=== PATIENT | male | born 1945 | race Caucasian/White ===

== ENCOUNTER → 2016-08-22 | Outpatient (CLI) | payer OTHER ==
[~2016-08-22] MED LIST: IOPAMIDOL (ISOVUE 370) 100 ML BTL IV ONE
== END ==
LOC: CIMAGING 10:11
PROVIDERS: ATTEND Internal Medicine
DX: R10.9 Unspecified abdominal pain (principal); R10.12 Left upper quadrant pain; K59.00 Constipation, unspecified; M51.36 Other intervertebral disc degeneration, lumbar region; Z85.528 Personal history of other malignant neoplasm of kidney; Z90.5 Acquired absence of kidney
CPT/HCPCS: 74160-PO; Q9967

== ENCOUNTER 2016-12-23 19:59 | Inpatient (IN) | payer OTHER ==
[2016-12-23] MEDS ORDERED: NS 500 ML IV ONE (20:18)
--- NOTE | 2016-12-23 20:18 | CPEKG ---
Heart Rate: 54 RR Interval: 1111 P-R Interval: 180 QRSD Interval: 92 QT Interval: 432 QTC Interval: 410 P [place]: 30 QRS [place]: -65 T Wave [place]: 51 EKG Severity - ABNORMAL ECG - EKG Impression: SINUS RHYTHM EKG Impression: LEFT ANTERIOR FASCICULAR BLOCK Electronically Signed By: Adriano Nesbitt 23-Dec-2016 22:08:12
[2016-12-23 20:42] LABS: INR 0.99 (0.83-1.16)
[2016-12-23 20:43] LABS: APTT 23.8 SEC (23.0-38.0)
[2016-12-23 20:51] LABS: ANION GAP 10 mEq/L (8-16); CALCIUM 9.9 mg/dL (8.5-10.4); CARBON DIOXIDE 25 mEq/l (22-31); CHLORIDE 101 mEq/L (97-110); GLOMERULAR FILTRATION RATE > 60; GLUCOSE 109 mg/dL (70-100); POTASSIUM 3.9 mEq/L (3.5-5.2); SODIUM 136 mEq/L (134-144)
--- NOTE | 2016-12-23 20:51 | EDPHY ---
H & P Time Seen by Provider: 12/23/16 20:10 HPI/ROS: HPI Lightheaded, chest pain. 71-year-old male by private vehicle with his . This patient reports that over the last week he has had intermittent episodes of lightheadedness and near syncope. He reports he is associated with chest pain which she describes as a mid sternal ache. He also reports these episodes are associated with diaphoresis. He denies any radiation of the chest pain. He denies any headache. No associated shortness of breath. He has had no loss of sensation or weakness in his extremities. He denies any associated palpitations. He has a history of coronary artery disease. Please see below. ROS: Constitutional: No fever, no chills. As above. Eyes: No discharge. No changes in vision. ENT: No sore throat. No nasal congestion or rhinorrhea. Respiratory: No cough. No shortness of breath. Cardiac: As above, no palpitations. Gastrointestinal: No abdominal pain, no vomiting, no diarrhea. Genitourinary: No hematuria. No dysuria or increased frequency with urination. Musculoskeletal: No back pain. No neck pain. No myalgias or arthralgias. Skin: No rashes. Neurological: No headache. No focal weakness or altered sensation. 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 He had a coronary angiogram by Dr. Cagle about 1 year ago. This showed some clogging of 1 of the stents which was reopened. Social history: Nonsmoker. No alcohol. Here with his . Physical Exam: General Appearance: Alert, no distress. This patient is responding to questions appropriately and in full sentences. This patient appears well- hydrated and well-nourished. Eyes: Pupils equal and round no pallor or injection. No lid edema, erythema or injection. Respiratory: There are no retractions, lungs are clear to auscultation with good air movement bilaterally. Cardiovascular: Regular rate and rhythm. No murmur appreciated. Gastrointestinal: Abdomen is soft and nontender, no masses, bowel sounds normal. No focal tenderness at McBurney's point. No Garcia sign. Neurological: Motor sensory function is grossly intact. Cranial nerves are normal. Gait is normal. Skin: Warm and dry, no rashes. Musculoskeletal: Neck is supple and nontender. Extremities are symmetrical. All joints range without pain or impingement. Psychiatric: No agitation. No depression. Database: EKG: EKG time is 8:17 p.m.; EKG shows a narrow complex normal sinus rhythm with a ventricular rate of 54. Left anterior fascicular block noted. The [place], QRS, QT intervals are within normal limits. There are no ST-T wave changes indicative of ischemic or injury pattern. No evidence of right heart strain. No evidence of WPW, Brugada syndrome, hypertrophic cardiomyopathy. Interpreted by me. Imaging: Chest x-ray AP portable; the cardiac mediastinal silhouette is unremarkable. No evidence of infiltrate or pneumothorax. No acute cardiopulmonary disease process noted. Interpreted by me. Procedures: Emergency department course: IV placed. He was placed on a shelter monitor. He was started on IV normal saline with 500 cc to be given over the next hour. He was given 324 mg of chewed aspirin. EKG performed. He states that this time that he feels mildly lightheaded but is otherwise asymptomatic. His vital signs were reviewed. 9:10 p.m., spoke with hospitalist regarding this patient's emergency department workup. Case discussed in detail. Dr. Roxana Esquivel accepts the patient for admission to telemetry. Echocardiogram and carotid artery Dopplers will be obtained by the hospitalist service. 9:30 p.m., results of diagnostic workup discussed with the patient and his . Plan for admission reviewed. All of their questions were answered. The patient was admitted to the hospitalist service, telemetry in stable condition. Differential Diagnosis: The differential diagnosis on this patient includes but is not limited to acute coronary syndrome, arrhythmia. CVA, TIA, pulmonary embolism, subarachnoid hemorrhage unlikely. This represents a partial list of diagnoses considered. These considerations are based on history, physical exam, past history, reassessment and diagnostic testing. Smoking Status: Never smoked Constitutional: Initial Vital Signs Temperature (C) 36.5 C 12/23/16 20:05 Heart Rate 56 L 12/23/16 20:05 Respiratory Rate 14 12/23/16 20:05 Blood Pressure 122/76 H 12/23/16 20:05 O2 Sat (%) 94 12/23/16 20:05 O2 Delivery Mode Room Air Allergies/Adverse Reactions: morphine Allergy (Severe, Verified 10/25/16 20:01) symptomatic bradycardia ciprofloxacin [From Cipro] Allergy (Verified 02/26/16 20:01) Other-Enter Comments ciprofloxacin HCl [From Cipro] Allergy (Verified 02/26/16 20:01) rofecoxib [From Vioxx] Allergy (Verified 02/26/16 20:01) Home Medications: Medication Instructions Recorded Multivitamins [Multivitamin (*)] 1 each PO DAILY 05/05/12 Nitroglycerin [Nitrostat 0.4 mg 0.4 mg SL PRN PRN 05/05/12 (*)] Pravastatin Sodium 5 mg PO HS 05/05/12 amLODIPine BESYLATE [Norvasc 5 mg 5 mg PO DAILY 05/05/12 (*)] Herbals/Supplements -Info Only 1 ea PO DAILY 10/24/13 Tamsulosin HCl [Flomax 0.4 MG (*)] 0.4 mg PO HS 08/31/14 C/E/Zn/Cu/OM3/DHA/EPA/LUT/ZEAX 2 each PO DAILY 02/24/16 [Preservision Areds 2 Softgel] HYDROmorphone HCL [Dilaudid 2 mg 2 mg PO Q4 PRN 02/24/16 (*)] LORazepam [Ativan (*)] 1 mg PO DAILY PRN 02/24/16 Levothyroxine [Synthroid 25 mcg 25 mcg PO DAILY06 02/24/16 (*)] Nebivolol HCl [Bystolic 5 mg (*)] 2.5 mg PO DAILY 02/24/16 Niacin [Niacin ER] 1,500 mg PO HS 02/24/16 Zolpidem Tartrate [Ambien 5MG (*)] 5 mg PO HS PRN 02/24/16 Acetaminophen [Tylenol 325mg (*)] 650 mg PO Q6HRS PRN #0 tab 03/01/16 Polyethylene Glycol 3350 [Miralax 17 gm PO DAILY #0 pkt 03/01/16 17 gm (*)] Medical Decision Making - Diagnostics Imaging Results: Imaging Impressions Chest X-Ray 12/23/16 20:19 Impression: Chest negative for acute abnormality. - Data Points Laboratory Results: Laboratory Results 12/23/16 20:15 12/23/16 12/23/16 12/23/16 Unknown 20:15 20:15 WBC Pending RBC Pending Hgb Pending Hct Pending MCV Pending MCH Pending MCHC Pending RDW Pending Plt Count Pending MPV Pending Neut % (Auto) Pending Lymph % (Auto) Pending [place] % (Auto) Pending Eos % (Auto) Pending Baso % (Auto) Pending Nucleat RBC Rel Count Pending Absolute Neuts (auto) Pending Absolute Lymphs (auto) Pending Absolute Monos (auto) Pending Absolute Eos (auto) Pending Absolute Basos (auto) Pending Absolute Nucleated RBC Pending Immature Gran % Pending Immature Gran # Pending PT 13.0 SEC SEC (12.0-15.0) INR 0.99 (0.83-1.16) APTT 23.8 SEC SEC (23.0-38.0) Sodium 136 mEq/L mEq/L (134-144) Potassium 3.9 mEq/L mEq/L (3.5-5.2) Chloride 101 mEq/L mEq/L (97-110) Carbon Dioxide 25 mEq/l mEq/l (22-31) Anion Gap 10 mEq/L mEq/L (8-16) BUN 19 mg/dL mg/dL (7-23) Creatinine 1.0 mg/dL mg/dL (0.7-1.3) Estimated GFR > 60 Glucose 109 mg/dL H mg/dL (70-100) Calcium 9.9 mg/dL mg/dL (8.5-10.4) Creatine Kinase 70 IU/L IU/L (0-224) CK-MB (CK-2) Fraction 0.84 ng/mL ng/mL (0.00-3.19) Troponin I < 0.012 ng/mL ng/mL (0.000-0.034) NT-Pro-B Natriuret Pep 84 pg/mL pg/mL (0-125) Medications Given: Discontinued Medications Aspirin (Aspirin) 324 mg PO EDNOW ONE Stop: 12/23/16 20:53 Last Admin: 12/23/16 20:58 Dose: 81 mg Sodium Chloride (Ns) 500 mls @ 1,000 mls/hr IV EDNOW ONE PRN Reason: Protocol Stop: 12/23/16 20:47 Last Admin: 12/23/16 20:39 Dose: 500 mls Departure - Departure Disposition: [facility] Acute Clinical Impression: Chest pain, Lightheaded, Near syncope, History of coronary artery disease Referrals: Nery Hurd MD [Primary Care Provider] - As per Instructions
[2016-12-23] MEDS ORDERED: ASPIRIN 81 MG CHEWABLE TAB PO ONE (20:52)
[2016-12-23 21:03] LABS: CREATINE KINASE-MB FRACTION 0.84 ng/mL (0.00-3.19); TROPONIN I < 0.012 ng/mL (0.000-0.034)
[2016-12-23 21:12] LABS: % IMMATURE GRANULYOCYTES 0.3 % (0.0-1.1); ABSOLUTE IMMATURE GRANULOCYTES 0.02 10^3/uL (0.00-0.10); ADD DIFF? NO; ADD MORPH? NO; ADD SCAN? NO; ATYPICAL LYMPHOCYTE FLAG 10 (0-99); FRAGMENT RBC FLAG 0 (0-99); HEMATOCRIT 41.9 % (40.0-51.0); HEMOGLOBIN 14.9 g/dL (13.7-17.5); LEFT SHIFT FLG 0 (0-99); LIPEMIA HEMOLYSIS FLAG 90 (0-99); MEAN CELL HEMOGLOBIN 34.6 pg (27.9-34.1); MEAN CELL HEMOGLOBIN CONCENTR. 35.6 g/dL (32.4-36.7); MEAN CELL VOLUME 97.2 fL (81.5-99.8); MEAN PLATELET VOLUME 9.7 fL (8.7-11.7); PLATELET CLUMPS FLAG 0 (0-99); PLATELET COUNT 168 10^3/uL (150-400); RED BLOOD CELL COUNT 4.31 10^6/uL (4.40-6.38); RED CELL DISTRIBUTION WIDTH 12.6 % (11.5-15.2)
[2016-12-23] MEDS ORDERED: NON-FORMULARY NEW DRUG (Zolpidem Tartrate [Ambien 10 Mg] 5 MG) PO PRN (23:34)
[2016-12-23] MEDS ORDERED: POLYETHYLENE GLYCOL 3350 17 GM PKT PO PRN (23:34)
[2016-12-23] MEDS ORDERED: LORazepam 1 MG TAB PO PRN (23:34)
[2016-12-23] MEDS ORDERED: NITROGLYCERIN TL PRN (23:39)
[2016-12-23] MEDS ORDERED: NITROGLYCERIN SL SCH (23:45)
[2016-12-23] MEDS ORDERED: ONDANSETRON 4 MG/2 ML VIAL IVP PRN (23:47)
[2016-12-23] MEDS ORDERED: ONDANSETRON DISINTEGRATING 4 MG TAB PO PRN (23:47)
--- NOTE | 2016-12-24 00:25 | GHP ---
[f rep st] HISTORY AND PHYSICAL DATE OF ADMISSION: 12/23/2016 CHIEF COMPLAINT: Lightheadedness. HISTORY OF PRESENT ILLNESS: A 71-year-old man with a history of cardiac disease presents with about 1 week's worth of lightheadedness. This started last Thursday described as significant dizziness. He has not fallen or fainted. It waxes and wanes. He is not currently feeling lightheaded at this time. This is associated with some substernal chest pain, which is different than his previous angin a. This also waxes and wanes. His cardiac history includes stents to his diagonal placed [address] Cagle. He had a cat heterization about 1 year ago in which the stent was angioplastied. No additional stent was placed. He had been on aspirin and was started on Plavix at that point. Plavix was stopped in February aft er he had a splenic rupture post colonoscopy. He has been on aspirin but not Plavix since then. PAST MEDICAL/SURGICAL HISTORY: 1. Coronary artery disease, as above. 2. Renal cell carcinoma, status post tumor resection about 3 years ago. 3. Bilateral ureteral strictures. 4. Hyperlipidemia. 5. Benign prostatic hypertrophy. 6. Appendectomy. MEDICATIONS: Please see medication reconciliation. ALLERGIES: These include morphine, Cipro, Vioxx, Bactrim. FAMILY HISTORY: Both of his parents had coronary artery disease. SOCIAL HISTORY: He drinks alcohol about a glass of wine every other day. Does not smoke. REVIEW OF SYSTEMS: 10-point review of systems is conducted and is negative except per HPI. PHYSICAL EXAMINATION: VITAL SIGNS: Blood pressure 128/74, heart rate 48, respiration rate 18, satt ing 96% on room air, temperature is 36.2. GENERAL: The patient is a pleasant man, who is comfortab le, in no acute distress. HEENT: Shows him to be normocephalic, atraumatic. CARDIOVASCULAR: Show s a regular rate and rhythm. No murmurs, rubs, or gallops. NECK: Shows him to have no carotid bru its bilaterally. PULMONARY: Shows him to be breathing comfortably. Clear to auscultation bilatera lly. ABDOMEN: Soft, nontender, nondistended. SKIN: Shows no rash. : Shows no Kevin. NEUROLO GIC: Shows him to be alert and oriented x3. He is moving all extremities. PSYCHIATRIC: Shows a no rmal mood and affect. LABORATORY DATA: Hemoglobin is 14.9. INR 0.99. Basic metabolic panel is normal. Troponin is negat srini. BNP is 84. DATA: 1. I reviewed his chart. 2. I discussed this with Dr. Esquivel. Will admit to the PCU. 3. I personally reviewed and interpreted his EKG. This shows sinus sachin. He has a left anterior fascicular block. This is unchanged from his previous. 4. Chest x-ray, which I personally reviewed and interpreted, shows nothing acute. IMPRESSION AND PLAN: A 71-year-old male with lightheadedness. 1. Lightheadedness: Concerning for cardiac etiology. Could represent recurrent coronary artery di sease. Also consider arrhythmias, including bradyarrhythmia given his bradycardia. Will monitor on telemetry, make him n.p.o. after midnight for cardiac evaluation, and check an echocardiogram in th e morning. Will also check a duplex ultrasound of his carotids. If there is any question on this, could proceed with CT angiogram, though I will hold this for now as he will potentially get a contra st load with his catheterization. I will ask covering colleague tomorrow to discuss with Cardiology . 2. Hypertension: Continue his Norvas. /[id number]/MODL
[2016-12-24] MEDS: NIACIN ER 500 MG TAB.ER PO SCH ×2 (00:31→21:59)
[2016-12-24] MEDS: PRAVASTATIN SODIUM 10 MG TAB PO SCH ×2 (00:31→21:59)
[2016-12-24] MEDS: TAMSULOSIN HCL 0.4 MG CAP PO SCH ×2 (00:31→22:00)
[2016-12-24] MEDS: ZOLPIDEM TARTRATE 5 MG TAB PO PRN ×2 (00:32→22:03)
[2016-12-24] MEDS: LEVOTHYROXINE 50 MCG TAB PO SCH (07:36)
[2016-12-24] MEDS: PRESERVISION AREDS2 FORMULA EYE VIT 1 EACH PO SCH (09:18)
[2016-12-24] MEDS: ASPIRIN EC 81 MG TAB PO SCH (09:18)
--- NOTE | 2016-12-24 11:19 | ECHO ---
[id number] + + [id number] : : [place] [address] : : [phone] + + Adult Echocardiographic Report + -------+ :Name: COLLEEN PRAKASH DStudy Date: 12/24/2016 07:39 AM : : Hospital Admission Number: [id number] Locati on: 209: :: 1945 Gender: Male Height: 69 in : :Age: 71 yrs Race: WH,White Weight: 136 lb : :Reason For Study: Lightheadedness/chest pain : : BSA: 1.8 meter s2 : + -------+ MMode/2D Measurements \T\ Calculations IVSd: 0.69 cm LVIDd: 4.4 cm FS: 39.5 % LA dimension: LVPWd: 0.86 cm LVIDs: 2.7 cm EDV(Teich): 3.4 cm 89.1 ml ESV(Teich): 26.6 ml EF(Teich): 70.2 % LVLd ap4: 7.5 cm SV(MOD-sp4): EDV(MOD-sp4): 43.0 ml 60.0 ml LVLs ap4: 6.2 cm ESV(MOD-sp4): 17.0 ml EF(MOD-sp4): 71.7 % Normal Measurement Values: + + :LVIDd (3.5-5.7cm) IVSd (0.6-1.1cm) LVPWd (0.6-1.1cm) Aortic Root (2.0-3.7cm)Left Atrium (1.5-4.0cm): :LV Vol(d) (76-115ml) LV Vol(s) (29-48ml) Ejec Fraction (50-65%)PV Lee (0.6- 1.2m/s) TV Lee (0.4-1.0m/s) : :MV E Lee (0.8-1.0m/s)MV A Lee (0.3-1.0m/s)LVOT Lee (0.7-1.2m/s) Asc Ao Lee ( 0.9-1.8m/s) : + + Doppler Measurements \T\ Calculations MV E max lee: 75.0 cm/secAo V2 max: 110.3 cm/sec AI max lee: 324.1 cm/sec MV A max lee: 59.7 cm/secAo max P.9 mmHg AI max P.0 mmHg MV E/A: 1.3 AI dec slope: 161.0 cm/sec2 AI P1/2t: 589.7 msec Left Ventricle The left ventricle is normal in size. There is normal left ventricular wall thickness. Left ventricular systolic function is normal. Ejection Fraction = 60-65%. There is Doppler evidence for diastolic dysfunction. No regional wall motion abnormalities noted. Right Ventricle The right ventricle is normal in size and function. Atria The left atrial size is normal. Right atrial size is normal. The interatrial septum is intact with no evidence for an atrial septal defect. Mitral Valve The mitral valve is normal in structure and function. There is no evidence of mitral valve prolapse. There is no mitral valve stenosis. There is trace mitral regurgitation. Tricuspid Valve Normal tricuspid valve. There is trace tricuspid regurgitation. Aortic Valve The aortic valve is trileaflet. The aortic valve opens well. There is no aortic stenosis. Mild aortic regurgitation. Pulmonic Valve The pulmonic valve is normal in structure and function. There is no pulmonic valvular regurgitation. Great Vessels The aortic root is normal size. Mildly dilated ascending aorta. Pericardium/Pleural There is no pericardial effusion. Conclusion A complete two-dimensional transthoracic echocardiogram was performed (2D, M-mode, Doppler and color flow Doppler). Normal LV size and wall motion. Left ventricular systolic function is normal. Ejection Fraction = 60-65%. There is Doppler evidence for diastolic dysfunction. Normal appearing valves. There is trace mitral regurgitation. There is trace tricuspid regurgitation. Mild aortic regurgitation. Mildly dilated ascending aorta at 4.5 cm. Unchanged from January 2015. Final Reading Physician: Tamy Moore signed on 12/24/2016 11:18 AM Ordering Physician: Jeremy Sanchez Performed By: Rosana Mesa, ZANECS
[2016-12-24] MEDS ORDERED: DIAZEPAM 5 MG TAB PO ONE (12:53)
[2016-12-24] MEDS ORDERED: FAMOTIDINE 20 MG TAB PO ONE (12:53)
[2016-12-24] MEDS ORDERED: diphenhydrAMINE 25 MG CAP PO ONE (12:53)
[2016-12-24] MEDS ORDERED: ASPIRIN EC 325 MG TAB PO ONE (12:53)
[2016-12-24] MEDS ORDERED: IOPAMIDOL (ISOVUE-370) 150 ML BTL IV ONE (15:32)
[2016-12-24] MEDS ORDERED: LIDOCAINE 1% 300 MG/30 ML SDV ONE (15:32)
[2016-12-24] MEDS ORDERED: fentaNYL 100 MCG/2 ML INJ ONE (15:38)
[2016-12-24] MEDS ORDERED: MIDAZOLAM 2 MG/2 ML VIAL ONE (15:39)
--- NOTE | 2016-12-24 17:24 | CPEKG ---
Heart Rate: 47 RR Interval: 1277 P-R Interval: 184 QRSD Interval: 100 QT Interval: 460 QTC Interval: 407 P [place]leg[place]: 51 QRS [place]leg[place]: -62 T Wave [place]: 64 EKG Severity - ABNORMAL ECG - EKG Impression: SINUS BRADYCARDIA EKG Impression: LEFT ANTERIOR FASCICULAR BLOCK EKG Impression: LOW VOLTAGE IN FRONTAL LEADS EKG Impression: NONSPECIFIC T ABNORMALITIES, LATERAL LEADS Electronically Signed By: Jamarcus Cagle 25-Dec-2016 16:08:35
[2016-12-24] MEDS ORDERED: MECLIZINE HCL 25 MG TAB PO PRN (18:49)
--- NOTE | 2016-12-24 19:20 | HOSPPROG ---
Hospitalist Progress Note Assessment/Plan: Assessment: 71 yo M p/w persistent lightheadedness x 1 week, in setting of RCC, CAD Plan: # Lightheadedness. Acute, new problem, further w/u indicated. Potential etiologies include labrynthitis / Meniere's disease vs. metastatic recurrence vs. tachy/sachin arrhythmia, reports tinnitus beginning yesterday, and has small fluid bubble behind R tymp membrane - negative orthostatics, EKG w/ LAFB (personally interpreted) - Echo w/ dd, EF 60-65% - ruled obstructive coronary lesions w/ normal cath - d/w Dr. 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 Cont home Rx # BPH. Chronic, cont flomax HS Diet. Cardiac PPx. High risk, on lovenox Code. Full Dispo. Upgrade to inpatient admission status re: anticipate LOS > 2 MNs for reasonable medical necessity including ongoing symptoms requiring further w/u w / MRI in otherwise high risk patient w/ hx of renal cell carcinoma. Subjective: reports concern regarding ongoing symptoms, counseled patient extensively regarding w/u and need for additional head imaging Objective: Vital Signs Temp Pulse Resp BP Pulse Ox 36.7 C 41 L 10 L 110/69 91 L 12/24/16 12:40 12/24/16 18:34 12/24/16 18:34 12/24/16 18:34 12/24/16 18:34 Laboratory Results 12/23/16 Unknown 12/23/16 12/24/16 12/25/16 05:59 05:59 05:59 Intake Total 500 660 Balance 500 660 PT 13.0 SEC (12.0-15.0) 12/23/16 20:15 INR 0.99 (0.83-1.16) 12/23/16 20:15 - Time Spent With Patient Time Spent with Patient: greater than 35 minutes Time Spent with Patient: Greater than 35 minutes spent on this patients care, greater than 50% of time spent counseling, educating, and coordinating care regarding the above mentioned plan. - Physical Exam Constitutional: no apparent distress, appears nourished, not in pain, No chronically ill appearing, No uncomfortable Ears, Nose, Mouth, Throat: moist mucous membranes, hearing normal, other ( smallfluid bubble behind R tympanic membrane, normal left tymp membrane, normal outter ear canals) ICD10 Worksheet Patient Problems: Problems Problem Status Onset Chest pain Acute History of coronary artery disease Acute Lightheaded Acute Near syncope Acute Abdominal pain Acute Calculus of kidney and ureter Acute Hematemesis with nausea Acute Kidney neoplasm Acute Multiple transverse process fractures Acute Postoperative retention of urine Acute Splenic rupture Acute Vomiting Acute
--- NOTE | 2016-12-24 20:12 | CPIP ---
[f rep st] INVASIVE CARDIAC PROCEDURE DATE OF PROCEDURE: 12/24/2016 PROCEDURE: Coronary angiography. INDICATION: 1. Known coronary artery disease status post stenting of the left anterior descending coronary ada ry, with most recent percutaneous coronary intervention occurring in November of 2015 for in-stent reste nosis. 2. Chest pain syndrome concerning for unstable angina. ACCESS: Patient was prepped and draped in sterile fashion. 1% lidocaine was used to anesthetize th e right inguinal region. A 6-Serbian introducer sheath was placed selectively into the right common femoral artery via modified Seldinger technique. CORONARY ANGIOGRAPHY: A 6-Serbian JL4 was advanced to the left main coronary artery and images obtai moo. The left main coronary artery bifurcated into an LAD and circumflex coronary arteries. The le ft main coronary artery had a single discrete 15% stenosis in the midvessel. The left anterior desc ending coronary artery gave rise to 2 prominent diagonal branches as well as several smaller diagona l branches. The left anterior descending coronary artery had stents from the proximal through the m id segments. The previously placed stents were widely patent with mild in-stent restenosis, the wor st stenosis approaching 20%. The first diagonal artery had an ostial 30% stenosis present. The sec ond diagonal artery had an ostial 20% to 30% stenosis present. The circumflex coronary artery is a moderate-sized vessel. The circumflex coronary artery is nondominant. Circumflex coronary artery g ave rise to 2 prominent OM branches. Circumflex coronary artery had mild diffuse disease throughout . There was no stenosis greater than 20%. A 6-Serbian JR4 was advanced to the right coronary artery and images obtained. The right coronary artery was dominant. The right coronary artery had mild d iffuse disease throughout. There was no stenosis greater than 20%. LEFT VENTRICULOGRAPHY: Left ventriculography was not performed. The patient had previous echocardi ogram performed demonstrating preserved left ventricular systolic function with no segmental wall mo tion abnormalities. COMPLICATIONS: None. CONCLUSIONS: 1. Mild coronary artery disease without flow limitation. 2. Patent left anterior descending stents with mild in-stent restenosis with no stenosis greater th an 20%. /[id number]/MODL
[2016-12-24] MEDS ORDERED: GADOBUTROL 10 ML VIAL IVP ONE (20:29)
[2016-12-24] MEDS ORDERED: NIACIN ER 500 MG TAB.ER PO SCH (21:00)
[2016-12-24] MEDS ORDERED: PRAVASTATIN SODIUM 10 MG TAB PO SCH (21:00)
[2016-12-24] MEDS ORDERED: NIACIN 1500 MG PO SCH (21:00)
[2016-12-24] MEDS ORDERED: TAMSULOSIN HCL 0.4 MG CAP PO SCH (21:00)
[2016-12-24] MEDS ORDERED: NIACIN 500 MG TAB PO SCH (21:00)
--- NOTE | 2016-12-24 21:38 | GCON ---
[f rep st] CONSULTATION DATE OF CONSULTATION: 12/24/2016 CHIEF COMPLAINT: We have been asked by Dr. Esquivel to evaluate this patient with a chief complaint o f lightheadedness and chest pain. HISTORY OF PRESENT ILLNESS: The patient is a 71-year-old gentleman with known coronary artery disea se, who presents with a 1-week history of lightheadedness and chest pain. The [facility] until this last Thursday when he had an episode of significant dizziness while si tting at his desk. He describes the dizziness as a sensation of presyncope. The dizziness was not associated with chest pain or palpitations. His symptoms gradually resolved without intervention. The patient reports several other episodes of dizziness since this time and has begun to limit his a ctivity. He denies fredy syncope. The subsequent episodes have been associated with symptoms of ch est pain. The chest pain is described as a discomfort in the center of his chest. It does not radi ate, and it is not associated with nausea, vomiting, or diaphoresis. The chest discomfort is somewh at similar to his previous angina in character, but it is definitely different in intensity. When t he patient's symptoms did not improve, he presented to the emergency department for further evaluati on. In the emergency department, he had an EKG performed demonstrating a sinus rhythm, left anterio r fascicular block, and no significant ST or T-wave changes. His initial biomarkers were within nor mal limits. The patient was admitted to the hospital for further evaluation. While in the hospital , the patient did report recurrent symptoms of dizziness. Telemetry monitoring at those times demon strated a normal sinus rhythm, with no significant bradycardia or significant arrhythmias. The jason ent's blood pressure has been within normal limits. The patient denies a recent change in his medic ations. PAST MEDICAL HISTORY: 1. Coronary artery disease. The patient has known coronary artery disease. He presented with an a cute coronary syndrome in 2004 and was treated with percutaneous coronary intervention of his left a nterior descending coronary artery at that time. The patient was recently found to have in-stent re stenosis in November of 2015. He was treated with cutting balloon angioplasty of his LAD. 2. Ascending aortic aneurysm, measured at 4.5 cm. 3. Tgxj-nd-ztswjbbm aortic insufficiency. 4. Renal cell carcinoma, status post resection 3 years ago. 5. Bilateral ureteral strictures. 6. Hyperlipidemia. 7. Benign prostatic hypertrophy. 8. Status post appendectomy. MEDICATIONS: Please see medicine reconciliation form. ALLERGIES: 1. Morphine. 2. Cipro. 3. Vioxx. 4. Bactrim. FAMILY HISTORY: Notable for coronary artery disease. SOCIAL HISTORY: The patient continues to work. He does not smoke. He denies problems with alcohol . REVIEW OF SYSTEMS: A 10-point review of systems is negative except as noted in the HPI. The patien t does report a history of vasovagal syncope. However, these episodes are not like his previous vas ovagal syncope. PHYSICAL EXAMINATION: GENERAL: The patient is resting comfortably in bed. He does not appear to b e in acute distress. VITALS: Temperature afebrile, pulse 62, blood pressure 110/62, respiratory ra te 16, SaO2 94% on room air. HEENT: Normocephalic, atraumatic. Extraocular muscles intact. NECK: No JVD. No bruits. LUNGS: Clear to auscultation bilaterally. CARDIOVASCULAR: Regular rate and rhythm, S1, S2. Grade 2/6 diastolic decrescendo murmur noted at the left sternal border. ABDOMEN: Soft, nontender. Normoactive bowel sounds. Evidence of previous scar. EXTREMITIES: No clubbing , cyanosis, or edema. NEUROLOGIC: The patient is awake, alert, and oriented x3. SKIN: No evidenc e of rashes. LABORATORY DATA: White blood cell count 6.27, hemoglobin 14.9, hematocrit 41.9, platelet count 168. INR 0.99. D-dimer 0.44. Sodium 136, potassium 3.9, chloride 101, CO2 25, BUN 19, creatinine 1.0. Troponin within normal limits x2. EKG demonstrates a sinus rhythm, no significant ST or T-wave ch anges, and left anterior fascicular block. ASSESSMENT AND PLAN: The patient is a 71-year-old gentleman with: 1. Chest pain. The patient has known coronary artery disease and is status post previous percutane ous coronary intervention of his left anterior descending coronary artery in 2004. The patient unde rwent recent cutting balloon angioplasty of his left anterior descending coronary artery for in-sten t restenosis in November of 2015. He presents with symptoms of chest pain that are similar in character to his previous anginal symptoms; however, are not as severe in intensity. His EKG demonstrates no acute ST or T-wave changes. His biomarkers are within normal limits. I reviewed options for risk stratification including cardiac catheterization and stress testing. The patient wishes to pursue c ardiac catheterization at this time. We will arrange to have it performed. 2. Presyncope. The patient presents with a 1-week history of lightheadedness, which is best descri bed as presyncope. Of note, his telemetry monitoring during symptoms demonstrates no significant ar rhythmias. Echocardiogram demonstrates no significant valvular heart disease, and carotid Dopplers are relatively unremarkable. We will evaluate for coronary artery disease as noted above and contin ue to monitor the patient on telemetry monitoring, as his symptoms in the hospital were not as signi ficant as his previous symptoms. /[id number]/MODL
[2016-12-24] MEDS: ACETAMINOPHEN 325 MG TAB PO PRN (22:04)
[2016-12-25] MEDS: CETIRIZINE 10 MG TAB PO SCH ×2 (00:39→21:13)
[2016-12-25] MEDS: LEVOTHYROXINE 50 MCG TAB PO SCH (05:46)
[2016-12-25] MEDS: PRESERVISION AREDS2 FORMULA EYE VIT 1 EACH PO SCH (08:02)
[2016-12-25] MEDS: ASPIRIN EC 81 MG TAB PO SCH (08:02)
[2016-12-25] MEDS: ACETAMINOPHEN 325 MG TAB PO PRN ×2 (08:04→16:30)
--- NOTE | 2016-12-25 09:14 | HOSPPROG ---
Hospitalist Progress Note Assessment/Plan: 71 yo male admitted with light headedness, not dizziness. Normal cardiac cath, no rhythm problem. This AM Bp is slightly low, patient noting lightheadedness. patient new to me today -lightheadedness: unresolved and persistent. Intermittent. -hypertension: low Bp today, will hold norvasc. Patient says his Bp has been declining for past year and he has stopped his norvasc two weeks ago. -reviewed angio, Mri personally, reviewed monitor and history, no rhythm disturbance -CT angio of the head and neck show no obstructing lesions and no lesions in the [place]. -headache: Patient complaint of a headache most of the day. He had 1 Hudson which relieved the headache some. Headache is associated with some nausea without vomiting. The patient has not eaten much today. Neurologic exam is normal. I suspect the headache is secondary to poor nutritional intake and possibly contrast material. Tonight will give him additional Hudson make sure the patient needs and assess the matter in the morning. -orthostatic hypotension. Intermittently the patient is orthostatic. Perhaps this is symptomatic and it may represent autonomic dysfunction. He was started on Florinef yesterday and will continue this medication. -7 mm pulmonary nodule noted on CT of the neck. This should be followed up with a CT of the chest in the future. Plan: Continue Florinef, recheck orthostatic blood pressure in the morning, treat the headache with Hudson nutrition and fluids, and an outpatient CT of the chest for the 7 mm pulmonary nodule. -disposition: Discharge on 12/26 Time: 75 minutes total in review of the chart review of the CTA of the head and neck discussions with Neurology and discussion with Cardiology regarding the probability of an autonomic dysfunction. Will refer to Dr. Steven Lewis for the autonomic dysfunction. Subjective: c/o lightheadedness, no nausea, vomiting, fever, headache Objective: Vital Signs Temp Pulse Resp BP Pulse Ox 36.7 C 83 18 87/58 L 90 L 12/25/16 07:52 12/25/16 07:52 12/25/16 07:52 12/25/16 08:01 12/25/16 07:52 12/24/16 12/25/16 12/26/16 05:59 05:59 05:59 Output Total 500 Balance -500 PT 13.0 SEC (12.0-15.0) 12/23/16 20:15 INR 0.99 (0.83-1.16) 12/23/16 20:15 - Time Spent With Patient Time Spent with Patient: greater than 35 minutes Time Spent with Patient: Greater than 35 minutes spent on this patients care, greater than 50% of time spent counseling, educating, and coordinating care regarding the above mentioned plan. - Pending Discharge Pending Discharge Within 24 Hours: No Pending Discharge Within 48 Hours: Yes Pending Discharge Date: 12/27/16 Pending Discharge Time: 11:00 - Physical Exam Constitutional: no apparent distress Eyes: PERRL, anicteric sclera Ears, Nose, Mouth, Throat: moist mucous membranes, hearing normal Cardiovascular: regular rate and rhythym, systolic murmur, pulses symmetric bilaterally, other (hypotension noted. ) Respiratory: no respiratory distress, no rales or rhonchi, clear to auscultation Gastrointestinal: normoactive bowel sounds, soft, non-tender abdomen, no palpable masses Genitourinary: no bladder fullness Skin: warm Musculoskeletal: full muscle strength Neurologic: AAOx3, CN II-XII Intact Psychiatric: interacting appropriately ICD10 Worksheet Patient Problems: Problems Problem Status Onset Kidney neoplasm Acute Calculus of kidney and ureter Acute Postoperative retention of urine Acute Chest pain Acute Multiple transverse process fractures Acute Splenic rupture Acute Vomiting Acute Abdominal pain Acute Hematemesis with nausea Acute Lightheaded Acute Near syncope Acute History of coronary artery disease Acute
[2016-12-25] MEDS: HYDROCODONE/APAP 5/325 TAB PO PRN ×2 (11:55→18:34)
[2016-12-25] MEDS ORDERED: IOPAMIDOL (ISOVUE 370) 100 ML BTL IV ONE (14:36)
[2016-12-25] MEDS ORDERED: MAGNESIUM HYDROXIDE 30 ML UDCUP PO PRN (17:36)
[2016-12-25] MEDS ORDERED: BISACODYL 10 MG SUPP PR PRN (17:36)
[2016-12-25] MEDS ORDERED: LACTULOSE 20 GM/30 ML UDCUP PO PRN (17:36)
[2016-12-25] MEDS ORDERED: POLYETHYLENE GLYCOL 3350 17 GM PKT PO PRN (17:36)
[2016-12-25] MEDS: TAMSULOSIN HCL 0.4 MG CAP PO SCH (21:13)
[2016-12-25] MEDS: PRAVASTATIN SODIUM 10 MG TAB PO SCH (21:13)
[2016-12-25] MEDS: NIACIN ER 500 MG TAB.ER PO SCH (21:13)
[2016-12-25] MEDS: SENNOSIDES/DOCUSATE SODIUM TAB PO SCH (21:24)
[2016-12-26] MEDS: LEVOTHYROXINE 50 MCG TAB PO SCH (06:15)
[2016-12-26 06:19] VITALS: TEMP 97.9
[2016-12-26] MEDS ORDERED: FLUDROCORTISONE ACETATE 0.1 MG TAB PO SCH (09:00)
[2016-12-26] MEDS: PRESERVISION AREDS2 FORMULA EYE VIT 1 EACH PO SCH (09:08)
[2016-12-26] MEDS: SENNOSIDES/DOCUSATE SODIUM TAB PO SCH (09:08)
[2016-12-26] MEDS: ASPIRIN EC 81 MG TAB PO SCH (09:09)
[2016-12-26 12:44] VITALS: RESP 16; O2SAT 93
[2016-12-26] MEDS ORDERED: COSYNTROPIN 0.25 MG/2 ML SYRINGE IVP ONE (14:15)
[2016-12-26 14:34] LABS: HEMATOCRIT 42.4 % (40.0-51.0)
[2016-12-26 15:04] LABS: HEMOGLOBIN A1C 5.6 % (4.0-6.0)
[2016-12-26 16:05] LABS: C-REACTIVE PROTEIN < 5.0 mg/L (<10.0)
[2016-12-26 16:06] VITALS: BP 110/79; PULSE 62
[2016-12-26 16:33] LABS: CORTISOL-AM 24.5 ug/dL (4.5-22.7)
--- NOTE | 2016-12-26 18:40 | GDS ---
[f rep st] DISCHARGE SUMMARY NEW AND ACUTE DIAGNOSES ON THIS ADMISSION: 1. Acute lightheadedness, possible presyncopal episode. 2. Hypertension resolved during this hospitalization. 3. Headache of unclear etiology, possible post viral syndrome. 4. Intermittent orthostatic hypotension, possible autonomic dysfunction. 5. Pulmonary nodule, 7 mm, noted on CT scan of the head, neck. Outpatient followup suggested. 6. Coronary artery disease without evidence of acute coronary ischemia during this hospitalization. 7. Ascending aortic aneurysm measured at 4.5 cm. CHRONIC DIAGNOSES: 1. Renal cell carcinoma status post resection 3 years [employer]. 2. Bilateral ureteral strictures. 3. Hyperlipidemia. 4. Benign prostatic hypertrophy. 5. Ascending aortic aneurysm measured at 4.5 cm. CONSULTATIONS: Cardiology. PROCEDURES: Coronary angiography with findings of a mild coronary artery disease without flow limit ation. There were patent left anterior descending stents with mild in-stent restenoses with no grea ter stenosis than 20%. Brain MRI showed no evidence for intracranial metastases or abnormal enhance ment, there were severe periventricular white matter plaques probably nonspecific in age related tamara rovascular ischemia. CTA of the head and neck which showed partial visualization of the ascending aorta which was incompl etely evaluated, ectatic vessels suggest hypertension, no evidence of stenosis, occlusion or dissect ion of the [place], mild cerebral vascular atherosclerotic plaques but no definitive aneury sm or vascular malformation. HOSPITAL COURSE: 71-year-old gentleman was admitted with a complaint of dizziness. Initial concern s were of cardiac origin; thus, he underwent coronary angiography, and found no flow-limiting lesion s and no stenosis. An MRI of the brain was ordered showing no signs of infarction or mass. CTA of the head and neck al so showed no acute findings. Discussion with Neurology indicated that the CTA of the head and neck were normal then it was unlikely of a neurologic origin and more likely of an autonomic dysfunction. Post the CTA of the head and neck he had a headache without fever, nausea or vomiting. This requi red some analgesic medication and nicely resolved. He did not have a fever or sore throat. Of incidental note is the gentleman normally had hypertension and his usual outpatient medications i ncluded amlodipine for hypertension. His amlodipine was held on numerous occasions because his bloo d pressure was either normal or low. He was also noted to be orthostatic from sitting to standing o n 2 readings here in the hospital. Florinef was thus ordered and he was encouraged to take adequate fluid. As regards to a state of orthostatic hypertension, a Cortrosyn stimulation test was ordered and was found to be normal. Additionally, because of the persistent headache and his feeling of weakness, an ESR and CRP were or dered in search for possible inflammatory cause. His C-reactive protein is less than 5, the ESR was 7. A [place] antibody test is being ordered. Overall, the gentleman continues to have lightheadedness and is thought that if it is not of an infl ammatory order, then it may represent autonomic dysfunction. DISCHARGE MEDICATIONS: His new medication will be Florinef 0.1 mg daily, along with Tracy 5 mg p.o. q.6 hours p.r.n. pain and #10 tablets. His usual medications are as follows: Amlodipine 2.5 mg daily, which he will hold until he sees his PCP. PreserVision soft gel tablets daily, Synthroid 25 mcg daily. Ativan 1 mg p.o. p.r.n., niacin 1500 mg p.o. HS, nitroglycerin 1-2 sprays sublingual q.5 minutes p.r.n. chest pain. Pravachol 10 mg HS. Tamsulosin 0.4 mg HS, Ambien 5 mg p.o. HS, multivitamin daily, [place]-3 fatty acids daily, Yanet LAX 17 g p.o. p.r.n. constipation. PLAN: Shireenman will follow up with Dr. Nery Hurd in 1-2 weeks. He will also follow up with Sukh Kyle for possible evaluation of an autonomic dysfunction. MATTERS TO BE ADDRESSED AT FIRST FOLLOW UP: Recheck the gentleman's blood pressure and ascertain if he needs to continue on his Norvasc, assess whether he is continuing to have a headache and if that persists, possible referral further for the evaluation of headache with dizziness would be warrante d. TIME: This discharge required 60 minutes, greater than 50% to phone counselor and coordinate his care. All questions were answered of the patient and his . LABORATORIES: Of note at the time of discharge: Cortisol initial level 6.3, augmented with Cortrosy n to 18.5. His CRP was 5, troponins were entirely normal. Hemoglobin A1c was 5.6, ESR was 7, hemog lobin 14.5. /[id number]/MODL
[2016-12-27] MEDS ORDERED: LEVOTHYROXINE 25 MCG TAB PO SCH (06:00)
[2016-12-29 14:19] LABS: INTERPRETATION See Comments; WEST NILE VIRUS IGG Negative (Negative); WEST NILE VIRUS IGM Negative (Negative)
== END 2016-12-26 17:02 | disposition home or self-care (01) | DRG 287 ==
LOC: INTOOBSV 21:10 → F2W 21:59 → OBSVTOIN 12-24 19:11
PROVIDERS: ADMIT Internal Medicine; ATTEND Internal Medicine
PROC: B2111ZZ Fluoroscopy of Multiple Coronary Arteries using Low Osmolar Contrast (ICD-10-PCS; principal; 2016-12-24)
DX: R07.9 Chest pain, unspecified (principal); R42 Dizziness and giddiness; R51 Headache; I10 Essential (primary) hypertension; I95.1 Orthostatic hypotension; R91.1 Solitary pulmonary nodule; I25.10 Atherosclerotic heart disease of native coronary artery without angina pectoris; Z95.5 Presence of coronary angioplasty implant and graft; I71.2 Thoracic aortic aneurysm, without rupture; Z85.528 Personal history of other malignant neoplasm of kidney; Z90.5 Acquired absence of kidney; E78.5 Hyperlipidemia, unspecified; N40.0 Benign prostatic hyperplasia without lower urinary tract symptoms
CPT/HCPCS: 97161-GP; A9585; C1760; G8978-GP-CH; G8979-GP-CH; G8980-GP-CH; J0834; J1644; J2250; J2405; J3010; Q9967

== ENCOUNTER → 2017-01-30 | Outpatient (CLI) | payer OTHER | LOC: FIMAGING 16:03 | PROVIDERS: ATTEND Internal Medicine | DX: I71.2 Thoracic aortic aneurysm, without rupture (principal); K44.9 Diaphragmatic hernia without obstruction or gangrene; I25.10 Atherosclerotic heart disease of native coronary artery without angina pectoris | CPT/HCPCS: Q9967 ==

== ENCOUNTER → 2017-03-19 | Outpatient (CLI) | payer OTHER | LOC: FIMAGING 09:22 | PROVIDERS: ATTEND Surgery | DX: K44.9 Diaphragmatic hernia without obstruction or gangrene (principal); R10.13 Epigastric pain; K21.9 Gastro-esophageal reflux disease without esophagitis; K31.89 Other diseases of stomach and duodenum ==

== ENCOUNTER → 2017-07-06 | Outpatient (CLI) | payer OTHER | LOC: CIMAGING 10:17 | PROVIDERS: ATTEND Internal Medicine | DX: R07.9 Chest pain, unspecified (principal); R91.1 Solitary pulmonary nodule; I71.2 Thoracic aortic aneurysm, without rupture; K44.9 Diaphragmatic hernia without obstruction or gangrene | CPT/HCPCS: 71275-PO; Q9967 ==

== ENCOUNTER → 2018-04-02 | Outpatient (CLI) | payer OTHER | LOC: FIMAGING 08:57 | PROVIDERS: ATTEND Internal Medicine | DX: K82.8 Other specified diseases of gallbladder (principal); N28.9 Disorder of kidney and ureter, unspecified ==

== ENCOUNTER → 2018-04-20 | Outpatient (CLI) | payer OTHER ==
[~2018-04-20] MED LIST changes: -IOPAMIDOL (ISOVUE 370) 100 ML BTL IV ONE; +IOPAMIDOL (ISOVUE-300) 100 ML BTL ONE
== END ==
LOC: FIMAGING 09:30
PROVIDERS: ATTEND Internal Medicine
DX: K82.9 Disease of gallbladder, unspecified (principal); K44.9 Diaphragmatic hernia without obstruction or gangrene; Z98.890 Other specified postprocedural states; Z90.5 Acquired absence of kidney
CPT/HCPCS: 82565-PO; Q9967

== ENCOUNTER 2018-04-23 19:15 | Observation (INO) | payer OTHER ==
[2018-04-23 20:23] LABS: PLATELET COUNT 158 10^3/uL (150-400)
[2018-04-23] MEDS ORDERED: ONDANSETRON 4 MG/2 ML VIAL IVP ONE (20:37)
[2018-04-23] MEDS ORDERED: NS 1,000 ML IV ONE ×2 (20:37→23:12)
[2018-04-23] MEDS ORDERED: HYDROmorphONE/DILAUDID 2 MG/ML INJ IVP ONE ×2 (20:37→23:12)
--- NOTE | 2018-04-23 20:43 | EDPHY ---
H & P Stated Complaint: ABD PAIN SINCE 2PM, MID ABD, NAUSEA Time Seen by Provider: 04/23/18 20:41 HPI/ROS: HPI CHIEF COMPLAINT: Nausea, abdominal pain HISTORY OF PRESENT ILLNESS: 73-year-old male, presents emergency room with abdominal pain and nausea that started around 2:00 p.m. In the afternoon. He ate clams child around 1:00 p.m.. Around 2:00 p.m. He started developing nausea and abdominal pain his abdominal pain is mid abdomen. His so she had nausea with this. Denies chest pain or shortness of breath. Describes the pain is rather severe 10/10 pain mid abdomen. Denies diarrhea. Pain is been progressive and gotten worst throughout the day. Patient reports that he has had some ongoing abdominal pain recently that is been worked up for and was told that he has a cyst in his gallbladder, additionally has a large hiatal hernia. He is due to follow up with Dr. Jefferson and is scheduled for a HIDA scan. Past Medical History: Coronary artery disease with stents Past Surgical History: Appendectomy, partial nephrectomy, hernia repair Social History: Denies drugs alcohol tobacco. Family History: Noncontributory ROS REVIEW OF SYSTEMS: 10 Systems were reviewed and negative with the exception of the elements mentioned in the history of present illness. Exam Constitutional appears well nontoxic no acute distress, elderly, triage nursing summary reviewed, vital signs reviewed, awake/alert. Vital signs stable. Eyes normal conjunctivae and sclera, EOMI, PERRLA. HENT normal inspection, atraumatic, moist mucus membranes, no epistaxis, neck supple/ no meningismus, no raccoon eyes. Respiratory clear to auscultation bilaterally, normal breath sounds, no respiratory distress, no wheezing. Cardiovascular rate normal, regular rhythm, no murmur, no edema, distal pulses normal. Gastrointestinal hypoactive bowel sounds. However mild tender palpation throughout the abdomen no peritoneal signs. Genitourinary no CVA tenderness. Musculoskeletal no midline vertebral tenderness, full range of motion, no calf swelling, no tenderness of extremities, no meningismus, good pulses, neurovascularly intact. Skin pink, warm, & dry, no rash, skin atraumatic. Neurologic awake, alert and oriented x 3, AAOx3, moves all 4 extremities equally, motor intact, sensory intact, CN II-XII intact, normal cerebellar, normal vision, normal speech. Psychiatric normal mood/affect. Heme/Lymph/Immune no lymphadenopathy. Differential Diagnosis: Differential diagnosis includes but is not limited to and in no particular order: Bowel obstruction, appendicitis, gallbladder disease, diverticulitis, colitis, enteritis, perforated viscus, gastritis, GERD , esophagitis, urinary tract infection, pyelonephritis, kidney stones Medical Decision Making: Plan for this patient IV establishment IV fluid bolus , IV Dilaudid for pain control IV Zofran for nausea, CT scan abdomen pelvis with IV contrast to help delineate this rather severe abdominal pain. Rule out SBO. Patient has had multiple previous intra-abdominal surgeries. Re-evaluation: CT scan abdomen pelvis with IV contrast shows no free air free fluid, abnormal cecal colon without any volvulus. This is an abnormal CT scan. Called to me by Dr. Correa. [id number]: I went over this can with Dr. Maya. [facility] Dr. Jefferson who is establish relationship with him to see him in the morning. Blood work reviewed CT scan reviewed. Patient updated in at bedside updated comfortable this plan comfortable for being object overnight. 2nd L fluid ordered, IV Dilaudid order. I spoke with the hospitalist service Dr. Barnes, [id number]: Agrees to admit. Admit for abdominal pain. Bowel rest. IV fluids. Patient comfortable this plan. Source: Patient - Personal History Current Tetanus/Diphtheria Vaccine: Yes Tetanus Vaccine Date: 2010 - Medical/Surgical History Hx Asthma: No Hx Chronic Respiratory Disease: No Hx Diabetes: No Hx Cardiac Disease: Yes Hx Renal Disease: Yes Hx Cirrhosis: No Hx Alcoholism: No Hx HIV/AIDS: No Hx Splenectomy or Spleen Trauma: Yes Other PMH: partial right nephrectomy November 2013, kidney stents removed 07/04/14, hypothyroid, htn, CAD w/ stents, right and left pyloplasty 01/2015, hyperlipidemia,, HIATAL HERNIA, ?GALLBLADDER, APPY, RUPT SPLEEN - Social History Smoking Status: Never smoked Constitutional: Initial Vital Signs Temperature (C) 36.4 C 04/23/18 19:36 Heart Rate 70 04/23/18 19:36 Respiratory Rate 20 04/23/18 19:36 Blood Pressure 143/95 H 04/23/18 19:36 O2 Sat (%) 93 04/23/18 19:36 O2 Delivery Mode Room Air Allergies/Adverse Reactions: morphine Allergy (Severe, Verified 04/23/18 19:34) symptomatic bradycardia ciprofloxacin [From Cipro] Allergy (Verified 04/23/18 19:34) Other-Enter Comments ciprofloxacin HCl [From Cipro] Allergy (Verified 04/23/18 19:34) rofecoxib [From Vioxx] Allergy (Verified 04/23/18 19:34) sulfamethoxazole [From Bactrim] Allergy (Verified 04/23/18 19:34) trimethoprim [From Bactrim] Allergy (Verified 04/23/18 19:34) Home Medications: Medication Instructions Recorded Multivitamins [Multivitamin (*)] 1 each PO DAILY 05/05/12 Herbals/Supplements -Info Only 1 ea PO DAILY 10/24/13 C/E/Zn/Cu/OM3/DHA/EPA/LUT/ZEAX 2 cap PO DAILY 02/24/16 [Preservision Areds 2 Softgel] LORazepam [Ativan (*)] 1 mg PO DAILY PRN 02/24/16 Acetaminophen [Tylenol 325mg (*)] 650 mg PO Q6HRS PRN #0 tab 03/01/16 Levothyroxine [Synthroid 50 mcg 25 mcg PO DAILY06 12/23/16 (*)] Niacin 1,500 mg PO HS 12/23/16 Nitroglycerin 1 - 2 spray SL Q5M 12/23/16 [place]-3 Fatty Acids [Fish Oil 1000 1,000 mg PO DAILY 12/23/16 mg (*)] Polyethylene Glycol 3350 [Miralax 17 gm PO DAILY PRN 12/23/16 17 gm (*)] Pravastatin Sodium [Pravachol] 10 mg PO HS 12/23/16 Zolpidem Tartrate [Ambien 10 mg] 5 mg PO HS PRN 12/23/16 amLODIPine BESYLATE [Norvasc 2.5 2.5 mg PO DAILY 12/23/16 mg (*)] Hydrocodone/APAP 5/325 [[place] 1 tab PO Q4HRS PRN #10 tab 12/26/16 5/325 (*)] Metoprolol Tartrate 04/23/18 Medical Decision Making - Data Points Laboratory Results: Laboratory Results 04/23/18 20:10 04/23/18 20:10 Medications Given: Discontinued Medications Acetaminophen (Tylenol) 650 mg PO Q4HRS PRN PRN Reason: Pain, Mild/Fever, Can Take PO Stop: 10/20/18 23:29 Last Admin: 04/24/18 06:14 Dose: 650 mg Enoxaparin Sodium (Lovenox) 40 mg SC DAILY [facility] Stop: 10/21/18 08:59 Last Admin: 04/24/18 09:22 Dose: 40 mg Hydromorphone HCl (Dilaudid) 0.5 mg IVP EDNOW ONE Stop: 04/23/18 20:38 Last Admin: 04/23/18 20:48 Dose: 0.5 mg Hydromorphone HCl (Dilaudid) 0.5 mg IVP EDNOW ONE Stop: 04/23/18 23:13 Last Admin: 04/23/18 23:18 Dose: 0.5 mg Sodium Chloride (Ns) 1,000 mls @ 0 mls/hr IV EDNOW ONE; Wide Open PRN Reason: Protocol Stop: 04/23/18 20:38 Last Admin: 04/23/18 20:47 Dose: 1,000 mls Sodium Chloride (Ns) 1,000 mls @ 0 mls/hr IV ONCE ONE PRN Reason: Wide Open Stop: 04/23/18 23:13 Last Admin: 04/23/18 23:17 Dose: 1,000 mls Sodium Chloride (Ns) 1,000 mls @ 100 mls/hr IV CONT TEMO Stop: 10/20/18 23:29 Last Admin: 04/24/18 00:40 Dose: 1,000 mls Levothyroxine Sodium (Synthroid) 37.5 mcg PO ONCE ONE Stop: 04/24/18 06:01 Last Admin: 04/24/18 06:13 Dose: 37.5 mcg Ondansetron HCl (Zofran) 4 mg IVP EDNOW ONE Stop: 04/23/18 20:38 Last Admin: 04/23/18 20:48 Dose: 4 mg Ondansetron HCl (Zofran Odt) 4 mg PO Q4HRS PRN PRN Reason: Nausea/Vomiting, Use 1st Stop: 10/20/18 23:29 Last Admin: 04/24/18 00:39 Dose: 4 mg Tamsulosin HCl (Flomax) 0.4 mg PO ONCE ONE Stop: 04/24/18 01:46 Last Admin: 04/24/18 01:49 Dose: 0.4 mg Departure - Departure Disposition: [facility] Acute Clinical Impression: Abdominal pain Qualifiers: Abdominal location: generalized Qualified Code(s): R10.84 - Generalized abdominal pain Condition: Fair
[2018-04-23 21:03] LABS: INR 0.95 (0.83-1.16); PROTIME(PATIENT) 12.9 SEC (12.0-15.0)
[2018-04-23] MEDS ORDERED: IOPAMIDOL (ISOVUE-300) 100 ML BTL ONE (21:16)
[2018-04-23] MEDS ORDERED: PROMETHAZINE HCL 25 MG/ML INJ IVP PRN (23:30)
[2018-04-23] MEDS ORDERED: ONDANSETRON DISINTEGRATING 4 MG TAB PO PRN (23:30)
[2018-04-23] MEDS ORDERED: NS 1,000 ML IV SCH (23:30)
[2018-04-23] MEDS ORDERED: HYDROmorphONE/DILAUDID 1 MG/ML INJ IVP PRN (23:30)
[2018-04-23] MEDS ORDERED: ONDANSETRON 4 MG/2 ML VIAL IVP PRN (23:30)
[2018-04-24] MEDS: ACETAMINOPHEN 325 MG TAB PO PRN ×2 (00:39→06:14)
[2018-04-24] MEDS ORDERED: MELATONIN 3 MG TAB PO PRN (01:15)
[2018-04-24] MEDS ORDERED: TAMSULOSIN HCL 0.4 MG CAP PO ONE ×2 (01:21→01:45)
--- NOTE | 2018-04-24 01:33 | PDGENHP ---
History and Physical - Chief Complaint Abdominal pain - History of Present Illness 73 yo M w/ hx of CAD, hiatal hernia, RCC, and HTN presents with abdominal pain. The patient has been having abdominal symptoms for several weeks. These have generally been post-prandial epi-gastric pain and nausea. Evaluation thus far has revealed large hiatal hernia and gallbladder adenomyomatosis. Today, however , he developed severe, diffuse abdominal pain. This also occurred about 1 hour after eating clam chowder. The pain persisted for several hours and was described as crampy and intermittent. CT scan in the ED demonstrated dilated cecal with proximal narrowing of unclear significance. He has had 3-4 small, soft bowel movements today. He also says he has frequently been passing gas. At the time of my evaluation he is more comfortable after receiving pain medications. Dr. Cayeatno Jefferson was consulted in the ED who recommended admission for bowel rest, fluids, and overnight observation. Case discussed with ED physician Dr. Kearns; records reviewed and summarized above. History Information - Allergies/Home Medication List Allergies/Adverse Reactions: morphine Allergy (Severe, Verified 04/23/18 19:34) symptomatic bradycardia ciprofloxacin [From Cipro] Allergy (Verified 04/23/18 19:34) Other-Enter Comments ciprofloxacin HCl [From Cipro] Allergy (Verified 04/23/18 19:34) rofecoxib [From Vioxx] Allergy (Verified 04/23/18 19:34) sulfamethoxazole [From Bactrim] Allergy (Verified 04/23/18 19:34) trimethoprim [From Bactrim] Allergy (Verified 04/23/18 19:34) Home Medications: Multivitamins [Multivitamin (*)] 1 each PO DAILY 05/05/12 [Last Taken 12/23/16] Herbals/Supplements -Info Only 1 ea PO DAILY 10/24/13 [Last Taken 12/23/16] C/E/Zn/Cu/OM3/DHA/EPA/LUT/ZEAX [Preservision Areds 2 Softgel] 2 cap PO DAILY [Last Taken 12/23/16] LORazepam [Ativan (*)] 1 mg PO DAILY PRN 02/24/16 [Last Taken 02/03/16] Levothyroxine [Synthroid 50 mcg (*)] 25 mcg PO DAILY06 12/23/16 [Last Taken ] Niacin 1,500 mg PO HS 12/23/16 [Last Taken 12/22/16] Nitroglycerin 1 - 2 spray SL Q5M 12/23/16 [Last Taken Unknown] [place]-3 Fatty Acids [Fish Oil 1000 mg (*)] 1,000 mg PO DAILY 12/23/16 [Last Taken 12/23/16] Polyethylene Glycol 3350 [Miralax 17 gm (*)] 17 gm PO DAILY PRN 12/23/16 [Last Taken Unknown] Pravastatin Sodium [Pravachol] 10 mg PO HS 12/23/16 [Last Taken 12/22/16] Zolpidem Tartrate [Ambien 10 mg] 5 mg PO HS PRN 12/23/16 [Last Taken 12/22/16] amLODIPine BESYLATE [Norvasc 2.5 mg (*)] 2.5 mg PO DAILY 12/23/16 [Last Taken ] Metoprolol Tartrate 04/23/18 [Last Taken Unknown] I have personally reviewed and updated: family history, medical history - Past Medical History coronary artery disease, cancer (RCC) Additional medical history: cad, bph, hyperlipidemia - Surgical History Reports: appendectomy, coronary stent Additional surgical history: Partial nephrectomy - Family History Positive for: diabetes type II, CAD, hypertension - Social History Smoking Status: Never smoked Review of Systems Review of Systems: ROS: 10pt was reviewed & negative except for what was stated in HPI & below Physical Exam Physical Exam: Temp Pulse Resp BP Pulse Ox 36.6 C 70 16 165/73 H 95 04/24/18 00:28 04/24/18 00:28 04/24/18 00:28 04/24/18 00:28 04/24/18 00:28 O2 (L/minute) 1 Constitutional: appears nourished, uncomfortable Eyes: PERRL, EOMI Ears, Nose, Mouth, Throat: moist mucous membranes, no oral mucosal ulcers Cardiovascular: regular rate and rhythym, no murmur, rub, or gallop Respiratory: no respiratory distress, clear to auscultation Gastrointestinal: normoactive bowel sounds, tenderness (Mild, diffuse), No guarding, No rebound, No distension Skin: warm, normal color Musculoskeletal: full muscle strength, no muscle tenderness Neurologic: AAOx3, CN II-XII Intact Psychiatric: interacting appropriately, not anxious Lab Data & Imaging Review 04/23/18 20:10 04/23/18 20:10 WBC 5.76 10^3/uL (3.80-9.50) 04/23/18 20:10 RBC 4.39 10^6/uL (4.40-6.38) L 04/23/18 20:10 Hgb 14.4 g/dL (13.7-17.5) 04/23/18 20:10 Hct 41.8 % (40.0-51.0) 04/23/18 20:10 MCV 95.2 fL (81.5-99.8) 04/23/18 20:10 MCH 32.8 pg (27.9-34.1) 04/23/18 20:10 MCHC 34.4 g/dL (32.4-36.7) 04/23/18 20:10 RDW 13.2 % (11.5-15.2) 04/23/18 20:10 Plt Count 158 10^3/uL (150-400) 04/23/18 20:10 MPV 9.2 fL (8.7-11.7) 04/23/18 20:10 Neut % (Auto) 62.1 % (39.3-74.2) 04/23/18 20:10 Lymph % (Auto) 20.7 % (15.0-45.0) 04/23/18 20:10 [place] % (Auto) 9.5 % (4.5-13.0) 04/23/18 20:10 Eos % (Auto) 6.6 % (0.6-7.6) 04/23/18 20:10 Baso % (Auto) 0.9 % (0.3-1.7) 04/23/18 20:10 Nucleat RBC Rel Count 0.0 % (0.0-0.2) 04/23/18 20:10 Absolute Neuts (auto) 3.58 10^3/uL (1.70-6.50) 04/23/18 20:10 Absolute Lymphs (auto) 1.19 10^3/uL (1.00-3.00) 04/23/18 20:10 Absolute Monos (auto) 0.55 10^3/uL (0.30-0.80) 04/23/18 20:10 Absolute Eos (auto) 0.38 10^3/uL (0.03-0.40) 04/23/18 20:10 Absolute Basos (auto) 0.05 10^3/uL (0.02-0.10) 04/23/18 20:10 Absolute Nucleated RBC 0.00 10^3/uL (0-0.01) 04/23/18 20:10 Immature Gran % 0.2 % (0.0-1.1) 04/23/18 20:10 Immature Gran # 0.01 10^3/uL (0.00-0.10) 04/23/18 20:10 PT 12.9 SEC (12.0-15.0) 04/23/18 20:10 INR 0.95 (0.83-1.16) 04/23/18 20:10 APTT 21.2 SEC (23.0-38.0) L 04/23/18 20:10 VBG Lactic Acid 0.9 mmol/L (0.7-2.1) 04/23/18 21:00 Sodium 136 mEq/L (135-145) 04/23/18 20:10 Potassium 4.4 mEq/L (3.5-5.2) 04/23/18 20:10 Chloride 103 mEq/L (97-110) 04/23/18 20:10 Carbon Dioxide 24 mEq/l (22-31) 04/23/18 20:10 Anion Gap 9 mEq/L (6-14) 04/23/18 20:10 BUN 15 mg/dL (7-23) 04/23/18 20:10 Creatinine 0.9 mg/dL (0.7-1.3) 04/23/18 20:10 Estimated GFR > 60 04/23/18 20:10 Glucose 97 mg/dL (70-100) 04/23/18 20:10 Calcium 9.6 mg/dL (8.5-10.4) 04/23/18 20:10 Total Bilirubin 0.8 mg/dL (0.1-1.4) 04/23/18 20:10 Conjugated Bilirubin 0.4 mg/dL (0.0-0.5) 04/23/18 20:10 Unconjugated Bilirubin 0.4 mg/dL (0.0-1.1) 04/23/18 20:10 AST 60 IU/L (17-59) H 04/23/18 20:10 ALT 34 IU/L (21-72) 04/23/18 20:10 Alkaline Phosphatase 94 IU/L (38-126) 04/23/18 20:10 Total Protein 7.1 g/dL (6.3-8.2) 04/23/18 20:10 Albumin 4.5 g/dL (3.5-5.0) 04/23/18 20:10 Lipase 146 IU/L (23-300) 04/23/18 20:10 Specimen Hemolysis 137 04/23/18 20:10 Urine Color YELLOW 04/23/18 21:46 Urine Appearance CLEAR 04/23/18 21:46 Urine pH 6.0 (5.0-7.5) 04/23/18 21:46 Ur Specific [place] 1.012 (1.002-1.030) 04/23/18 21:46 Urine Protein NEGATIVE (NEGATIVE) 04/23/18 21:46 Urine Ketones TRACE (NEGATIVE) H 04/23/18 21:46 Urine Blood NEGATIVE (NEGATIVE) 04/23/18 21:46 Urine Nitrate NEGATIVE (NEGATIVE) 04/23/18 21:46 Urine Bilirubin NEGATIVE (NEGATIVE) 04/23/18 21:46 Urine Urobilinogen NEGATIVE EU (0.2-1.0) 04/23/18 21:46 Ur Leukocyte Esterase NEGATIVE (NEGATIVE) 04/23/18 21:46 Urine Glucose NEGATIVE (NEGATIVE) 04/23/18 21:46 Imaging Review: Imaging Impressions Abdomen CT 04/23/18 20:38 Impression: 1. New cecal distention, with moderate stool in the proximal colon and edema near an area of relative tapering in the proximal colon, without fredy obstruction. 2. Additional findings, as above. Findings discussed with Sergey Damon M.D., on April 23, 2018 at 2217. E:amm Assessment & Plan Assessment: 73 yo M w/ hx of CAD, RCC s/p partial nephrectomy, HTN, and hiatal hernia presents with abdominal pain. Plan: 1. Abdominal pain - Presents with acute, diffuse pain that is different in character to the pain he has been having for the last 2 weeks, which has been attributed to hiatal hernia and possible gallbladder pathology. CT (personally reviewed/interpreted) demonstrates new cecal distention with moderate stool in the proximal colon and edema near an area of relative tapering in the proximal colon, without fredy obstruction. He is having small BMs and passing flatus. - Admit for observation - NPO, mIVF, pain control PRN - Surgery consulted in the ED, Dr. Jefferson will see in the morning 2. Gallbladder adenomyomatosis - Possibly related to recent GI symptoms. HIDA scan ordered as an outpatient but not yet obtained. - Surgical consult as above 3. Hiatal hernia - Large per CT imaging. Has established care with Dr. Jefferson as an outpatient. 4. CAD - S/p stenting in x2 in 2004. No acute symptoms related to this. - Continue home medications pending reconciliation 5. RCC - S/p partial nephrectomy 6. HTN - continue home medications pending reconciliation Diet - NPO, mIVF Code - Full Ppx - LMWH Dispo - Admit under observation status
[2018-04-24 04:56] LABS: PLATELET COUNT 126 10^3/uL (150-400)
[2018-04-24] MEDS ORDERED: LEVOTHYROXINE 25 MCG TAB PO ONE (06:00)
[2018-04-24] MEDS ORDERED: ENOXAPARIN 40 MG/0.4 ML SYR SC SCH (09:00)
[2018-04-24 11:57] VITALS: BP 117/65
--- NOTE | 2018-04-24 14:32 | SOAPPROG ---
[facility] Progress Note Assessment/Plan: Assessment: 73-YEAR-OLD MALE WITH SYMPTOMATIC ACALCULOUS CHOLECYSTITIS WHO IS ADMITTED FOR ANOTHER BOUTS OF RIGHT UPPER QUADRANT PAIN. HE IS FEELING BETTER NOW HE IS SCHEDULED FOR HIDA SCAN ON THURSDAY WELL AN UPPER GI TO EVALUATE HIS HIATAL HERNIA LFTS ARE ESSENTIALLY NORMAL WITH A MINIMAL ELEVATION OF THE AST HEENT NONICTERIC CHEST CLEAR COR REGULAR RHYTHM ABDOMEN SOFT MINIMALLY TENDER IN THE RIGHT UPPER QUADRANT WITH BOWEL SOUNDS NO MASSES IMPRESSION IS ACALCULOUS CHOLECYSTITIS WITH ADENOMYOSIS OF THE GALLBLADDER RECOMMENDATIONS WOULD BE TO PROCEED WITH [facility] AT THIS TIME IF HE WISHES. WE OF PREVIOUSLY SCHEDULE HIM FOR THE HIDA SCAN AND UPPER GI TO HELP SORT OUT THE PAIN SITUATION BUT HE SEEMS TO HAVE INCREASING BOUTS OF RIGHT UPPER QUADRANT PAIN AT THIS TIME AND WE COULD JUST PROCEED WITH [facility] BASED ON HER FINDINGS ARE READY Plan: HE WILL DISCUSS WITH HIS AND DECIDE ON HIS COURSE OF ACTION. AT THIS TIME HE WOULD RATHER BE HOME FOR THE HOLIDAYS AND PROCEED WITH HIS OTHER TESTS 04/24/18 14:29 Objective: Vital Signs Temp Pulse Resp BP Pulse Ox 36.1 C 56 L 16 117/65 95 04/24/18 11:56 04/24/18 11:56 04/24/18 11:56 04/24/18 11:56 04/24/18 11:56 Laboratory Results 04/24/18 04:42 04/24/18 04:42 04/23/18 04/24/18 04/25/18 05:59 05:59 05:59 Intake Total 2545 Output Total 380 350 Balance 2165 -350 PT 12.9 SEC (12.0-15.0) 04/23/18 20:10 INR 0.95 (0.83-1.16) 04/23/18 20:10 ICD10 Worksheet Patient Problems: Problems Problem Status Onset Abdominal pain Acute Calculus of kidney and ureter Acute Chest pain Acute Hematemesis with nausea Acute History of coronary artery disease Acute Kidney neoplasm Acute Lightheaded Acute Multiple transverse process fractures Acute Near syncope Acute Postoperative retention of urine Acute Splenic rupture Acute Vomiting Acute
--- NOTE | 2018-04-25 01:31 | GDS ---
FINAL DIAGNOSES: 1. Abdominal pain of unclear etiology. 2. Abnormal findings on imaging including gallbladder adenomyomatosis, cecal distention, tapering of the proximal colon without fredy obstruction, mild AST elevation. HOSPITAL COURSE: A 73-year-old man, who has been worked up as an outpatient for abdominal pain, pres ented to the ED last night because of much worse abdominal pain, that lasted about 2 hours and occurr ed after eating. Nothing clear on imaging. Labs are reassuring. He has been afebrile. I do suspec t that this is likely biliary colic and he should have his gallbladder removed; however, he is anxiou s to be discharged. I recommended that we do a cholecystectomy today, which Dr. Jefferson is willing to do; however, he is declining this. He has a HIDA scan scheduled for 2 days from now, which he would prefer to have performed prior to a cholecystectomy. I did also offer a HIDA scan as an inpatient. He is not having acute cholecystitis and I think that this is a reasonable plan, though as above, I d iscouraged it. Certainly, other potential issues including his large hiatal hernia, abnormal colon f indings on CT scan could be causing his abdominal pain, too. Gave him and his strict return pre cautions for any worsening pain, fever, any other systemic signs, to present to the ED emergently. Sukh Jefferson has also been involved and agrees with this plan. He will follow up with Dr. Jefferson as an ou tpatient. He is otherwise discharged in stable condition; however, we do not have a clear diagnosis. /[id number]/MODL
--- NOTE | 2018-04-25 12:42 | GCON ---
HISTORY OF PRESENT ILLNESS: Patient is a 73-year-old male known to me for right upper quadrant pain. He has 2 problems. Ultrasound has demonstrated adenomyosis of the gallbladder, but no stones. He also has an enlarging hiatal hernia, which was seen on CT scan. It is unclear, which of these issues was causing his problem initially. He is scheduled next week for a HIDA scan, as well as an upper G I, and eventually, a GI consultation for possible endoscopy; however, he presented now with recurring sharp epigastric abdominal pain related to eating. The pain lasted several hours and he came to the ER. His pain at the present time is resolved and he is mildly hungry. He has no icterus, no fever, and no pain radiating into his back. Incidentally, he has had a colonoscopy within the last 2 years , which was negative. ALLERGIES: Include morphine, Cipro, Vioxx, Bactrim. MEDICATIONS: Presently include metoprolol, Norvasc, Pravachol, Ambien, MiraLAX, niacin, Synthroid, A tivan, and multiple supplements, also nitroglycerin. PAST MEDICAL HISTORY: Includes coronary artery disease, BPH, hyperlipidemia. He has had an appendec cheko, a coronary stent, and a partial nephrectomy for renal cancer. FAMILY HISTORY: Positive for hypertension, coronary artery disease, diabetes. SOCIAL HISTORY: Reveals he does not smoke. REVIEW OF SYSTEMS: Negative on a full 10-point review, except as related to the HPI. PHYSICAL EXAM: GENERAL: Reveals an alert, cooperative 73-year-old male in no acute distress. Afebr ile. HEENT: Reveals him to be anicteric, PERRLA, EOMs intact. No adenopathy or oral lesions. NECK : Supple, nontender without bruits or masses. CHEST: Clear and symmetric. COR: Regular rhythm wi thout murmurs. ABDOMEN: Soft, mildly tender in the epigastrium and right upper quadrant, but no mas ses, organomegaly, or hernias. GENITALIA: Normal. EXTREMITIES: Reveal full range of motion, full pulses. NEURO: Physiologic and symmetric. PSYCH: Reveals him to be alert, oriented, and cooperati ve. IMPRESSION: Probable acalculous cholecystitis. I doubt that his hiatal hernia would present with pa in similar to this and he has no present reflux symptoms. Risks and options have been fully discusse d with the patient, but I have offered him the option of a cholecystectomy at this time or discharge home with completion of his workup and follow up in the office with probable eventual cholecystectomy . He will decide what option he wants. /[id number]/MODL
== END 2018-04-24 14:30 | disposition home or self-care (01) ==
LOC: FOB 04-24 00:10
PROVIDERS: ADMIT Student in an Organized Health Care Education/Training Program; ATTEND Student in an Organized Health Care Education/Training Program
DX: R10.84 Generalized abdominal pain (principal); R93.2 Abnormal findings on diagnostic imaging of liver and biliary tract; K44.9 Diaphragmatic hernia without obstruction or gangrene; I25.10 Atherosclerotic heart disease of native coronary artery without angina pectoris; E78.5 Hyperlipidemia, unspecified; I10 Essential (primary) hypertension; E86.0 Dehydration; Z95.5 Presence of coronary angioplasty implant and graft; Z90.5 Acquired absence of kidney; Z85.528 Personal history of other malignant neoplasm of kidney
CPT/HCPCS: 74177; 96361; 96372; 96374; 96375; 96376; 99285; G0378; J1170; J1650; J2405; Q9967

== ENCOUNTER → 2018-04-26 | Outpatient (CLI) | payer OTHER | LOC: FIMAGING 09:06 | PROVIDERS: ATTEND Surgery | DX: R10.11 Right upper quadrant pain (principal); K87 Disorders of gallbladder, biliary tract and pancreas in diseases classified elsewhere | CPT/HCPCS: 78227; A9537 ==

== ENCOUNTER → 2018-04-30 | Outpatient (CLI) | payer OTHER | LOC: FIMAGING 08:50 | PROVIDERS: ATTEND Surgery | DX: R10.11 Right upper quadrant pain (principal); K44.9 Diaphragmatic hernia without obstruction or gangrene; K21.9 Gastro-esophageal reflux disease without esophagitis; K22.4 Dyskinesia of esophagus ==